=== PATIENT | female | born 1975 | race Two or more races ===

== ENCOUNTER 2022-02-20 10:25 | Outpatient (CLI) | payer OTHER | END 2022-02-20 10:27 | disposition home or self-care (01) | LOC: NUCLEAR 10:25 | PROVIDERS: ATTEND Internal Medicine Cardiovascular Disease | DX: R60.0 Localized edema (principal) ==

== ENCOUNTER 2022-02-22 10:19 | Outpatient (CLI) | payer OTHER | END 2022-02-22 10:21 | disposition home or self-care (01) | LOC: NUCLEAR 10:19 | PROVIDERS: ATTEND Internal Medicine Cardiovascular Disease | DX: I70.213 Atherosclerosis of native arteries of extremities with intermittent claudication, bilateral legs (principal) ==

== ENCOUNTER → 2023-01-10 | Outpatient (CLI) | payer OTHER | END | disposition home or self-care (01) | LOC: RAD 11:20 | PROVIDERS: ATTEND Orthopaedic Surgery | DX: I10 Essential (primary) hypertension (principal) ==

== ENCOUNTER 2023-11-21 12:28 | Outpatient (CLI) | payer OTHER | END 2023-11-21 12:41 | disposition home or self-care (01) | LOC: MAMO-SONO | PROVIDERS: ATTEND Obstetrics & Gynecology | DX: N60.21 Fibroadenosis of right breast (principal); N60.22 Fibroadenosis of left breast; N60.11 Diffuse cystic mastopathy of right breast; N60.12 Diffuse cystic mastopathy of left breast ==